=== PATIENT | male | born 1945 | race Caucasian/White ===

== ENCOUNTER 2022-03-12 08:29 | Emergency (ER) | payer OTHER ==
[2022-03-12] MEDS ORDERED: TETRACAINE 0.5% OPHTH SOLN 2 ML BOTTLE ONE (08:38)
[2022-03-12] MEDS ORDERED: FLUORESCEIN NA 1 EA STRIP ONE (08:39)
[2022-03-12 09:21] VITALS: BP 171/85; PULSE 83; RESP 17; TEMP 97.6; BMI 25.4
== END 2022-03-12 09:23 | disposition home or self-care (01) ==
LOC: FER 08:29
DX: B02.9 Zoster without complications (principal)
CPT/HCPCS: 99281-25